=== PATIENT | female | born 1940 | race Caucasian/White ===

== ENCOUNTER 2016-07-23 16:52 | Emergency (ER) | payer MEDICAID, OTHER ==
[~2016-07-23] VITALS: Ht 152.4 cm; Wt 59.0 kg
[~2016-07-23 16:52] MED LIST: AMLO-147 PO; CALC500T PO; CLON-379 PO; CLON0.3T PO; HYDR-3671 PO; LORA-441 PO; LOSA1TAB9 PO; METO25TA4 PO; RANI150T9 PO; ZOLP5TAB PO
[2016-07-23 17:01] VITALS: Ht 152.4 cm; Wt 59.0 kg
[2016-07-23] MEDS ORDERED: morphine 4 MG/ML VIAL IV STA (17:37)
[2016-07-23] MEDS ORDERED: ONDANSETRON 4 MG INJ IV STA (17:37)
[2016-07-23 17:54] LABS: BASOPHILS % 0.4 % (0.0-2.0); EOSINOPHILS # 0.2 10^3/ul (0.0-0.5); EOSINOPHILS % 2.4 % (0.0-7.0); HEMATOCRIT 39.2 % (37.0-47.0); HEMOGLOBIN 13.5 g/dl (12.0-16.0); LYMPHOCYTES # 3.1 10^3/ul (0.8-2.9); LYMPHOCYTES % 32.5 % (15.0-51.0); MEAN CORPUSCULAR HEMOGLOBIN 28.6 pg (29.0-33.0); MEAN CORPUSCULAR HGB CONC 34.4 g/dl (32.0-37.0); MEAN CORPUSCULAR VOLUME 83.2 fl (82.0-101.0); MEAN PLATELET VOLUME 7.7 fl (7.4-10.4); MONOCYTE # 0.6 10^3/ul (0.3-0.9); MONOCYTES % 6.5 % (0.0-11.0); NEUTROPHIL # 5.6 10^3/ul (1.6-7.5); NEUTROPHILS % 58.2 % (39.0-77.0); PLATELET COUNT 253 10^3/UL (140-440); RED BLOOD COUNT 4.71 10^6/ul (4.20-5.40); RED CELL DISTRIBUTION WIDTH 13.5 % (11.5-14.5); UNCORRECTED WBC 9.6 10^3/ul (4.8-10.8); WHITE BLOOD COUNT 9.6 10^3/ul (4.8-10.8)
[2016-07-23 17:58] LABS: CONDITION 1; SUSPECT 1
[2016-07-23 17:59] LABS: LH ANALYZER COMMENTS 1
[2016-07-23] MEDS ORDERED: hydrALAzine 20 MG INJ IV ONE (18:00)
[2016-07-23] MEDS ORDERED: LABETALOL HCL 20MG INJ IV ONE (18:00)
[2016-07-23 18:16] LABS: ALBUMIN 4.6 g/dl (3.3-4.9); CHLORIDE 97 mmol/L (97-110); SODIUM 135 mmol/L (135-144)
[2016-07-23 18:17] LABS: POTASSIUM 4.6 mmol/L (3.5-5.1)
--- NOTE | 2016-07-23 18:17 | RADRPT ---
PROCEDURE: Chest x-ray CLINICAL INDICATION: Chest pain TECHNIQUE: Chest single view COMPARISON: 09/29/2015 FINDINGS: There is stable mild cardiomegaly and moderate atherosclerotic aortic calcification. The pulmonary vessels are normal in caliber. The lungs are clear. The costophrenic angles are sharp. The visual ized bony thorax is unremarkable. IMPRESSION: No acute cardiopulmonary disease. Stable cardiomegaly and an sclerotic aortic calcification RPTAT: HH .Anoop Jade MD, Date Time Electronically viewed and signed by .Anoop Jade MD, on 07/23/2016 18:17 .W/
[2016-07-23 18:18] LABS: CREATININE 0.87 mg/dl (0.44-1.00)
[2016-07-23 18:19] LABS: ALANINE AMINOTRANSFERASE 20 IU/L (13-69); ALBUMIN/GLOBULIN RATIO 1.15; ALKALINE PHOSPHATASE 97 IU/L (42-121); ANION GAP 21 (8-16); ASPARTATE AMINO TRANSFERASE 42 IU/L (15-46); BILIRUBIN,INDIRECT 0.3 mg/dl (0-1.1); BILIRUBIN,TOTAL 0.3 mg/dl (0.2-1.3); BLOOD UREA NITROGEN 18 mg/dl (7-20); CARBON DIOXIDE 22 mmol/L (21-31); CREATINE KINASE 74 IU/L (23-200); GLUCOSE 90 mg/dl (70-220); TOTAL PROTEIN 8.6 g/dl (6.1-8.1)
[2016-07-23 18:20] LABS: CALCIUM 9.6 mg/dl (8.4-10.2)
[2016-07-23 18:28] LABS: B-TYPE NATRIURETIC PEPTIDE 875 PG/ML (0-450); CK-MB 1.67 ng/ml (0.0-2.4); PLATELET ESTIMATE PLT APPEAR ADEQUATE
[2016-07-23] MEDS ORDERED: APR50 PO (18:31)
[2016-07-23] MEDS ORDERED: LOSA1TAB20 PO (18:32)
[2016-07-23] MEDS ORDERED: METO-429 PO (18:32)
[2016-07-23] MEDS ORDERED: ASPI-664 PO (18:33)
[2016-07-23 18:50] LABS: INR 1.12; PROTIME 14.4 Sec (12.2-14.2); PT RATIO 1.1
[2016-07-23 18:51] LABS: PARTIAL THROMBOPLASTIN TIME 30.4 Sec (25.0-35.0)
--- NOTE | 2016-07-23 19:02 | RADRPT ---
PROCEDURE: CT Brain without. CLINICAL INDICATION: Headache. TECHNIQUE: A CT of the brain was performed on multidetector high-resolution CT scanner utilizing a xial sections from the skull base through the vertex without contrast. The scan was reviewed in sof t tissue brain and high frequency resolution bone algorithm windows. Images were reviewed on a high -resolution PACS workstation. One or more the following does reduction techniques were utilized: Aut omated exposure control, adjustment of the mA/ or kV according to patient's size, or use of iterativ e reconstruction technique. The exam CTDI = 44.19 mGy and the DLP = 720.23 mGy-cm. COMPARISON: Brain CT 09/29/2015. FINDINGS: The ventricles and sulci are mildly prominent indicative of volume loss. There is no intracranial he morrhage, mass effect or midline shift. No abnormal intra-axial or extra-axial fluid collections ar e seen. The castillo/white matter differentiation is preserved. There are mild scattered foci of hypoattenuation in the white matter, which are nonspecific in etiol ogy but likely reflect chronic small vessel ischemic changes. There are mild intracranial vascular calcifications consistent with atherosclerosis. The visualized paranasal sinuses are essentially lalita ar. Bilateral mastoid air cells are underpneumatized. IMPRESSION: 1. No acute intracranial hemorrhage, transcortical infarction or mass effect. No significant interv al change. 2. Mild intracranial atherosclerosis and chronic small vessel ischemic changes. 3. Mild generalized cerebral volume loss. RPTAT: HFN .James Murry MD, MD Date Time Electronically viewed and signed by .James Murry MD, MD on 07/23/2016 19:01 .N/
[2016-07-23 19:05] LABS: TROPONIN-I < 0.010 ng/ml (0.00-0.12)
[2016-07-23 19:21] VITALS: BP 179/90; PULSE 78; RESP 18
[2016-07-23] MEDS ORDERED: NAPR-260 PO (19:23)
[2016-07-23] MEDS ORDERED: LORAZEPAM 2 MG INJ IV ONE (19:30)
--- NOTE | 2016-08-12 20:42 | ERD ---
ER Documentation Chief Complaint Date/Time DATE: 08/12/16 TIME: 20:39 Chief Complaint HEADACHE STARTED THIS AM. HIGH BLOOD PRESSURE X 3 DAYS. HPI This is a very pleasant 75-year-old female that presents to the emergency department complaining of elevated blood pressure. She states that over the past 3 days she has had difficulty controlling her blood pressure and does take antihypertensives. She also indicates that upon awakening this morning she had a bandlike headache. The headache was 4 out of 10 in intensity and not the worst headache of her life. She indicates she has very similar headaches when she develops elevated blood pressure. She denied any chest pain or pressure that radiates to the neck arm back or jaw. She had no nausea vomiting or abdominal pain. She has no shortness of breath at rest or exertion. ROS All systems reviewed and are negative except as per history of present illness. Medications Home Meds Active Scripts Naproxen* (Naprosyn*) 500 Mg Tablet, 500 MG PO BID Y for PAIN AND/OR INFLAMMATION, #20 TAB Prov:TAYLOR JEREZ 07/23/16 Clonidine Hcl* (Clonidine Hcl*) 0.3 Mg Tablet, 0.3 MG PO BID, #60 TAB Prov:MADDY MENENDEZ MD 09/29/15 Reported Medications Aspirin* (Aspirin* EC) 81 Mg Tablet.dr, 81 MG PO DAILY, TAB 07/23/16 Losartan-Hydrochlorothiazide (Losartan-HCTZ) 100-25 Mg Tab, 1 TAB PO DAILY, TAB 07/23/16 Metoprolol Tartrate* (Lopressor*) 50 Mg Tab, 25 MG PO BID, #30 TAB 07/23/16 Hydralazine Hcl* (Hydralazine Hcl*) 50 Mg Tab, 50 MG PO DAILY, #30 TAB 07/23/16 Calcium Carbonate* (Os-Alexis 500*) 1 Tab Tablet, 1 TAB PO DAILY, TAB 07/04/15 Allergies Allergies: Coded Allergies: No Known Allergy (Unverified , 07/23/16) PMhx/Soc History of Surgery: Yes (HERNIA,appendectomy) Anesthesia Reaction: No Hx Neurological Disorder: No Hx Respiratory Disorders: No Hx Cardiac Disorders: Yes (HTN) Hx Psychiatric Problems: No Hx Miscellaneous Medical Probl: No Hx Alcohol Use: No Hx Substance Use: No Hx Tobacco Use: No Smoking Status: Never smoker Physical Exam Physical Exam Constitutional:Well-developed. Well-nourished. HEENT:Normocephalic. Atraumatic.Pupils were equal round reactive to light. Moist mucous membranes.No tonsillar exudates. Fundoscopy exam showed sharp optic disc bilaterally venous pulsations were present Neck: No nuchal rigidity. No lymphadenopathy. No posterior cervical spine tenderness or step-offs. Respiratory: Not using accessory muscles of respiration.Lungs were clear to auscultation bilaterally. No rhonchi. No rales. No wheezing. Cardiovascular: Regular rate regular rhythm.No murmurs. No rubs were appreciated.S1, S2 normal. Distal pulses are palpable 2+ bilaterally. GI: Abdomen was soft. Nontender. Non Distended. No pulsatile abdominal masses or bruits. No rebound. No guarding. Bowel sounds were present and normal. Muscle skeletal: Full range of motion of both the upper and lower extremities bilaterally.Normal muscle tone.No assymetrical calf tenderness or swelling. Skin: No petechia, no purpura. No lesions on the palms or the soles of the feet. No maculopapular rash. NEURO: Patient was alert, awake, orientated x3.No facial droop. Gait observed and normal with no ataxia.Speech had regular rate and rhythm. No focal neurological deficits. Results 24 hrs Laboratory Tests Test 07/23/16 17:30 07/23/16 18:30 Alanine Aminotransferase (ALT/SGPT) 20IU/L Albumin 4.6g/dl Albumin/Globulin Ratio 1.15 Alkaline Phosphatase 97IU/L Anion Gap 21 Aspartate Amino Transf (AST/SGOT) 42IU/L B-Type Natriuretic Peptide 875PG/ML Basophils # 0.010^3/ul Basophils % 0.4% Blood Morphology Comment Blood Urea Nitrogen 18mg/dl Calcium Level 9.6mg/dl Carbon Dioxide Level 22mmol/L Chloride Level 97mmol/L Creatine Kinase 74IU/L Creatine Kinase Index 2.3 Creatinine 0.87mg/dl Creatinine Kinase MB (Mass) 1.67ng/ml Direct Bilirubin 0.00mg/dl Eosinophils # 0.210^3/ul Eosinophils % 2.4% Globulin 4.00g/dl Glucose Level 90mg/dl Hematocrit 39.2% Hemoglobin 13.5g/dl Indirect Bilirubin 0.3mg/dl Lymphocytes # 3.110^3/ul Lymphocytes % 32.5% Mean Corpuscular Hemoglobin 28.6pg Mean Corpuscular Hemoglobin Concent 34.4g/dl Mean Corpuscular Volume 83.2fl Mean Platelet Volume 7.7fl Monocytes # 0.610^3/ul Monocytes % 6.5% Neutrophils # 5.610^3/ul Neutrophils % 58.2% Nucleated Red Blood Cells # 0.010^3/ul Nucleated Red Blood Cells % 0.0/100WBC Platelet Count 72906^3/UL Platelet Estimate PLT APPEAR ADEQUATE Potassium Level 4.6mmol/L Red Blood Count 4.7110^6/ul Red Cell Distribution Width 13.5% Sodium Level 135mmol/L Total Bilirubin 0.3mg/dl Total Protein 8.6g/dl Troponin I < 0.010ng/ml White Blood Count 9.610^3/ul Activated Partial Thromboplast Time 30.4Sec INR International Normalized Ratio 1.12 Prothrombin Time 14.4Sec Prothrombin Time Ratio 1.1 Current Medications Medications (Trade) Dose Ordered Sig/Deborah Route PRN Reason Start Time Stop Time Status Last Admin Dose Admin Morphine Sulfate (morphine) 4 mg ONCE STAT IV 07/23/16 17:37 07/23/16 17:38 Cancel Ondansetron HCl (Zofran Inj) 4 mg ONCE STAT IV 07/23/16 17:37 07/23/16 17:39 DC 07/23/16 17:52 Hydralazine HCl (Apresoline) 10 mg ONCE ONCE IV 07/23/16 18:00 07/23/16 18:01 Cancel Labetalol HCl (Labetalol) 10 mg ONCE ONCE IV 07/23/16 18:00 07/23/16 18:01 DC 07/23/16 17:53 Lorazepam (Ativan) 0.5 mg ONCE ONCE IV 07/23/16 19:30 07/23/16 19:31 DC 07/23/16 19:10 Procedures/[facility] The patient presented to the emergency department with an acute single headache that presented within hours of onset my differential diagnosis included but was not limited to meningitis, SAH, intracerebral hemorrhage, hypertensive encephalopathy, cranial artery dissection, cerebral venous sinus thrombosis, traumatic, acute sinusitis. The patient has no ocular symptoms to suggest temporal neuritis, acute narrow-angle glaucoma or pituitary apoplexy. The patient did not appear to have a toxic or metabolic etiology such as fever, hypoglycemia, high-altitude disease or carbon monoxide poisoning. This was not the patients worse headache of their life. The patient had a complete neurologic and fundoscopic exam performed by myself that was normal with no focal neurological deficits or retinal hemorrhage. The patient stated this headache was not severe or distinct from other headaches and the history with the physical exam findings did not likely suggest SAH. Therefore, I did not feel it was clinically necessary to perform a lumbar puncture and CSF analysis. The patient's headache resolved after intravenous morphine Zofran and Ativan had been given to the patient as she was stating she felt very anxious and verbal de-escalation was unable to calm the patient down as she was attempting to remove her IV. She stated she is anxious because she does not like to be in the hospital This patient also presented to the emergency department with severely elevated blood pressure. My differential diagnosis included but was not limited to conditions that could end-organ damage such as acute coronary syndrome, acute pulmonary edema, aortic dissection, subarachnoid hemorrhage, intracerebral hemorrhage, cerebral infarction, withdrawal syndromes from beta blockers, or states of catecholamine excess such as pheochromocytoma or drug intoxication. Ancillary lab work was obtained. There was no elevation in the BUN and creatinine to suggest acute renal failure. Electrolytes were normal. Cardiac enzyme was normal and the 12 lead EKG showed no acute ischemic changes or left ventricular hypertrophy. 12 Lead EKG tracing ordered and reviewed by myself showed: Normal sinus rhythm of 75 bpm and no arrhythmia. RI interval normal. QRS duration normal. No ST segment elevation No ST segment depression. No changes consistent with acute ischemia. Given that the patient had an absence of cerebral, ocular, cardiac or renal damage the hypertensive urgency was treated with IV hydralazine and labetalol agents in the emergency room with improvement of the patient's blood pressure. The patient likely appeared to be complaint with primary care physician and will follow up with their PCP in the next 24-48 hours. She was offered a trial of observation to be admitted to the hospital however she states she would prefer to be discharged home. They were instructed to return to the emergency department at anytime if there is any worsening of their condition such as development of chest pain or a headache. They were instructed to resume previous medication regimen or initiate a suitable medication regimen under care of the PCP to enable proper monitoring for drug reactions. The patient was also informed on the adverse side effects and adverse drug interactions of the medications prescribed to them by myself. The patient gave informed consent to the prescription of the new medication. Departure Diagnosis: Primary Impression: Headache Headache chronicity pattern: acute headache Intractability: not intractable Additional Impression: Hypertensive urgency Condition: Good Patient Instructions: Understanding Headache Pain, Hypertension, Established, Out Of Control Referrals: GAMALIEL RAND MD (PCP) TAYLOR JEREZ Aug 12, 2016 20:42
== END 2016-07-23 19:52 | disposition home or self-care (01) ==
LOC: E/R 16:52
DX: R51 Headache (principal); R40.2252 Coma scale, best verbal response, oriented, at arrival to emergency department; I16.0 Hypertensive urgency; I10 Essential (primary) hypertension; R07.9 Chest pain, unspecified; R40.2362 Coma scale, best motor response, obeys commands, at arrival to emergency department; R40.2142 Coma scale, eyes open, spontaneous, at arrival to emergency department; Z79.82 Long term (current) use of aspirin
CPT/HCPCS: 70450; 71010; 80053; 82550; 82553; 83880; 84484; 85025; 85610; 85730; 93005; 96374; 96375; J2060; J2405; Z7502; Z7610; J2270